=== PATIENT | female | born 1960 | race African-American/Black ===

== ENCOUNTER 2023-12-09 18:55 | Emergency (ER) | payer SELFPAY ==
[~2023-12-09] VITALS: Ht 165.1 cm; Wt 100.0 kg
[2023-12-09 20:03] VITALS: RESP 16; O2SAT 99
[2023-12-09 23:53] VITALS: BP 171/98; PULSE 101; TEMP 97.9
== END 2023-12-09 23:55 | disposition home or self-care (01) ==
LOC: ER 19:06
DX: F41.0 Panic disorder [episodic paroxysmal anxiety] (principal); I10 Essential (primary) hypertension; Z86.73 Personal history of transient ischemic attack (TIA), and cerebral infarction without residual deficits
CPT/HCPCS: 71045; 93005; 99283